=== PATIENT | female | born 1990 ===

== ENCOUNTER 2018-03-13 17:00 | Emergency (ER) | payer OTHER ==
[~2018-03-13] VITALS: Ht 152.4 cm; Wt 67.1 kg
[~2018-03-13 17:00] MED LIST: DICLOFENAC POTA50 MG PO
== END 2018-03-13 22:46 | disposition home or self-care (01) ==
LOC: ER 17:00
DX: N83.292 Other ovarian cyst, left side (principal); R10.2 Pelvic and perineal pain

== ENCOUNTER 2018-10-29 16:40 | Emergency (ER) | payer OTHER ==
[~2018-10-29] VITALS: Ht 154.9 cm; Wt 64.9 kg
== END 2018-10-29 22:42 | disposition home or self-care (01) ==
LOC: ER 16:40
DX: R53.1 Weakness (principal); R50.9 Fever, unspecified; R51 Headache; R53.81 Other malaise; H70.93 Unspecified mastoiditis, bilateral

== ENCOUNTER 2018-11-02 17:48 | Emergency (ER) | payer OTHER ==
[~2018-11-02] VITALS: Ht 154.9 cm; Wt 64.9 kg
[2018-11-02] MEDS ORDERED: AIRBORNE EFFER1 EACH PO (22:21)
[2018-11-02] MEDS ORDERED: INTESTINEX680 M1 PO (22:21)
[2018-11-02] MEDS ORDERED: KETO10TA2 PO (22:21)
== END 2018-11-02 22:39 | disposition home or self-care (01) ==
LOC: ER 17:48
DX: J06.9 Acute upper respiratory infection, unspecified (principal); G44.209 Tension-type headache, unspecified, not intractable